=== PATIENT | male | born 1955 | race Caucasian/White ===

== ENCOUNTER 2022-12-05 07:10 | Day surgery (SDC) | payer OTHER ==
[~2022-12-05] VITALS: Ht 177.8 cm; Wt 120.4 kg
[2022-12-05] MEDS ORDERED: LATANOPROST2.5 M3 (07:41)
[2022-12-05] MEDS ORDERED: ASPI325 PO (07:42)
[2022-12-05] MEDS ORDERED: ACET500 (07:42)
--- NOTE | 2022-12-05 07:49 | NUR ---
12/05/22 0749 Tahmina Siddiqui AT 0740 PLEET 0731
== END 2022-12-05 09:20 | disposition home or self-care (01) ==
LOC: ORSCSDS 07:10
PROVIDERS: Ophthalmology
PROC: 08DJ3ZZ Extraction of Right Lens, Percutaneous Approach (ICD-10-PCS; principal; 2022-12-05 08:30)
PROC: 08923ZZ Drainage of Right Anterior Chamber, Percutaneous Approach (ICD-10-PCS; principal; 2022-12-05 08:30)
DX: H25.13 Age-related nuclear cataract, bilateral (principal); H40.1134 Primary open-angle glaucoma, bilateral, indeterminate stage; E66.9 Obesity, unspecified; Z68.38 Body mass index [BMI] 38.0-38.9, adult; Z79.82 Long term (current) use of aspirin; Z79.899 Other long term (current) drug therapy
CPT/HCPCS: J2001; J2250; J3010; J3301; J7040; V2632

== ENCOUNTER 2025-08-29 10:40 | Day surgery (SDC) | payer OTHER ==
[2025-08-29] VITALS (18 sets, daily range): BP systolic 111–159; BP diastolic 48–100
[~2025-08-29] VITALS: Ht 177.8 cm; Wt 120.6 kg
[~2025-08-29 10:40] MED LIST: ACET500; ASPI325 PO; LATANOPROST2.5 M3
[2025-08-29] MEDS ORDERED: NAPR220 PO (11:25)
--- NOTE | 2025-08-29 12:29 | NUR ---
08/29/25 1229 Gayla Mae CONFIRMED AND REVIEWED H&P, MEDCICATIONS, ALLERGIES, MEDICAL HISTORY, RESPIRATORY HISTORY, VITAL SIGNS, 3-LEAD EKG, CONSENTS, AND PHYSICIAN ORDERS. PATIENT CONFIRMS NPO STATUS AND AGREES WITH SCHEDULED PROCEDURE. MONITOR INTACT WITH CONTINUOUS PULSE OXIMETRY, CAPNOGRAPHY, 3-LEAD EKG, INTERMITTENT BP. SUPPLEMENTAL O2 TO BE TITRATED THROUGHOUT PROCEDURE TO MAINTAIN O2 SATURATION ABOVE 90%. PATIENT DETERMINED TO BE ASA APPROPRIATE FOR PROPOFOL SEDATION PRIOR TO START OF PROCEDURE BY DR. CROOK
--- NOTE | 2025-08-29 13:24 | NUR ---
Patient up to Ambulate independently. Gait steady. Discharge instructions reviewed with patient. Patient verbalizes understanding. Copy given to patient to take home, [facility]. Patient States Post-Procedure ride home has been arranged. Discharged via wheelchair to private car for ride home. PT TOLERATING PO, REPORTS READY TO GO HOME.
== END 2025-08-29 13:24 | disposition home or self-care (01) ==
LOC: ORSCMMR 10:40 → ORD 12:15 → ORSCMMR 13:24 → ORD 13:30
PROVIDERS: Family Medicine
PROC: 0DJD8ZZ Inspection of Lower Intestinal Tract, Via Natural or Artificial Opening Endoscopic (ICD-10-PCS; principal; 2025-08-29 12:15)
DX: Z12.11 Encounter for screening for malignant neoplasm of colon (principal); R19.5 Other fecal abnormalities; K64.0 First degree hemorrhoids; K57.30 Diverticulosis of large intestine without perforation or abscess without bleeding; K64.4 Residual hemorrhoidal skin tags
CPT/HCPCS: J2704; J7120